=== PATIENT | male | born 1995 | race Caucasian/White ===

== ENCOUNTER 2022-08-12 22:26 | Emergency (ER) | payer SELFPAY ==
[~2022-08-12] VITALS: Ht 172.7 cm; Wt 82.0 kg
[2022-08-12] MEDS ORDERED: HYDROCODONE/ACETAMINOPHEN 5/325MG TABLET PO STA (22:35)
[2022-08-12] MEDS ORDERED: TETANUS, DIPHTHERIA, PERTUSSIS VAC/PF 0.5ML (>10YR OLD) IM ONE (22:45)
[2022-08-12 22:58] VITALS: BP 128/72
[2022-08-13] MEDS ORDERED: IBUP-2028 MT (00:15)
[2022-08-13] MEDS ORDERED: BACITRACIN ZINC OINT UDPKT TOP ONE (00:15)
== END 2022-08-13 00:16 | disposition home or self-care (01) ==
LOC: ER 22:26
DX: S09.93XA Unspecified injury of face, initial encounter (principal); W34.00XA Accidental discharge from unspecified firearms or gun, initial encounter; Y93.89 Activity, other specified; Y92.89 Other specified places as the place of occurrence of the external cause; Y99.8 Other external cause status; M25.571 Pain in right ankle and joints of right foot
CPT/HCPCS: 73600; 73620; 90471; 90715; 99284; Z7610